=== PATIENT | female | born 1935 | race Caucasian/White ===

== ENCOUNTER 2017-09-23 10:55 | Emergency (ER) | payer MEDICARE, BC ==
[~2017-09-23] VITALS: Ht 565.3 cm; Wt 67.7 kg
[2017-09-23] MEDS ORDERED: LEVO25TA2 PO (11:09)
[2017-09-23] MEDS ORDERED: ASPI81TA52 PO (11:09)
[2017-09-23] MEDS ORDERED: TETanus/Pertussis (Acell)/Diphther VAC/PF (Tdap-Adult) 0.5ml syringe IM ONE (12:20)
[2017-09-23] MEDS ORDERED: EPI IJ ONE (13:25)
[2017-09-23] MEDS ORDERED: BUPIVACAINE 0.5% IJ ONE (13:25)
[2017-09-23] MEDS ORDERED: LIDOcaine 1.5% w/epinephrine 1:200,000 5ml ampul SQ ONE (13:40)
[2017-09-23] MEDS ORDERED: bacitracin 15gm ointment TP ONE (14:25)
[2017-09-23 14:37] VITALS: BP 150/76
== END 2017-09-23 14:40 | disposition home or self-care (01) ==
LOC: ER 10:55
DX: S06.0X0A Concussion without loss of consciousness, initial encounter (principal); S01.01XA Laceration without foreign body of scalp, initial encounter; S80.12XA Contusion of left lower leg, initial encounter; Z79.82 Long term (current) use of aspirin; Z79.899 Other long term (current) drug therapy; W22.8XXA Striking against or struck by other objects, initial encounter; Y93.89 Activity, other specified; Y92.89 Other specified places as the place of occurrence of the external cause; Y99.8 Other external cause status
CPT/HCPCS: 12001; 70450; 90471; 90715; 99284; A6449; J3490

== ENCOUNTER 2025-02-03 10:05 | Emergency (ER) | payer MEDICARE, BC ==
[~2025-02-03] VITALS: Ht 162.6 cm; Wt 76.0 kg
[2025-02-03 10:05] VITALS: TEMP 98
[~2025-02-03 10:05] MED LIST: ASPI81TA52 PO; LEVO25TA2 PO
--- NOTE | 2025-02-03 10:13 | ELECTROCARDIOGRAPH REPORT ---
[facility] Test Date: 2025-02-03 Test Time: 10:10:51 Pat Name: LISE GOODE Department: EMERGENCY ROOM Room: Gender: F [employer]: ALVAREZ : 1935 Requested By: JEREMIAH HERNÁNDEZ Order Number: [id number] Reading MD: Dr. HERMES Vaughan Measurements Intervals [place] Rate: 107 P: 0 WV: 0 QRS: 81 QRSD: 85 T: 43 QT: 330 QTc: 441 Interpretive Statements Atrial fibrillation Borderline right axis deviation Low voltage, precordial leads Probable anteroseptal infarct, old Minimal ST depression, diffuse leads Electronically Signed On 02-05-2025 11:46:[address] HERMES Vaughan Please click the below link to view image of tracing.
--- NOTE | 2025-02-03 10:34 | RADIOLOGY REPORT ---
EXAM: DI CHEST,SINGLE VIEW Indication: CP Technique: Single frontal view of the chest was obtained Comparison: None FINDINGS: Lines and Tubes: None Lungs: No focal consolidation. Pleura: No effusion. No pneumothorax. Cardiomediastinal contours: Unremarkable. Atherosclerotic vascular calcifications of the thoracic aorta are noted. Bones: No acute osseous abnormality. IMPRESSION: No acute cardiopulmonary disease.
[2025-02-03 10:43] LABS: MEAN PLATELET VOLUME 9.0 FL (7.4-10.4); RED CELL DISTRIBUTION WIDTH 12.9 % (11.5-14.5)
[2025-02-03 11:01] LABS: CREATININE 1.22 MG/DL (0.40-0.90); PRO BRAIN NATRIURETIC PEPTIDE 1549 PG/ML (0-450); TOTAL CARBON DIOXIDE 30.4 MMOL/L (24-32); eCRCL 28 ML/MIN; eGFR 42 ML/MIN
[2025-02-03] MEDS ORDERED: albuterol 2.5 MG/3 ML nebule NEB ONE (11:15)
--- NOTE | 2025-02-03 11:18 | RADIOLOGY REPORT ---
EXAM: CT CT HEAD INDICATION: fall, head strike, blood thinner TECHNIQUE: CT of the head without intravenous contrast. Radiation Dose : 1. Head: CT Dose: CTDI volume is 51.7 mGy. Dose-length product is 898.8 mGy*cm The dose indicators for CT are the volume Computed Tomography (CT) Dose Index (CTDIvol) and the Dose Length Product (DLP), and are measured in units of mGy and mGy-cm, respectively. These indicators are not patient dose, but values generated from the CT scanner acquisition factors. The report includes radiation exposure data for exposures received during this examination. COMPARISON: None FINDINGS: There is no evidence of acute intracranial hemorrhage, extra-axial collection, mass effect, midline shift, herniation or hydrocephalus. The ventricles, sulci and cisterns are age appropriate. The bowling-white differentiation is intact. Patchy periventricular and subcortical white matter hypoattenuation is nonspecific but may be related to small vessel ischemic disease. The visualized paranasal sinuses and mastoid air cells are clear. Moderate to severe left posterior frontal soft-tissue hematoma. IMPRESSION: No acute intracranial abnormality. Radiation optimization: All CT scans at this facility use at least one of these dose optimization techniques: automated exposure control mA and/or kV adjustment per patient size (includes targeted exams where dose is matched to clinical indication) or iterative reconstruction.
--- NOTE | 2025-02-03 11:19 | RADIOLOGY REPORT ---
EXAM: CT CT CERVICAL SPINE HISTORY: fall head strike COMPARISON: CT CT HEAD on DOS: 02/03/25 CTDIvol 20 mGy, DLP 441 mGy*cm. TECHNIQUE: Multiple axial CT images of the spine were obtained using bone algorithm. Axial and coronal reformatting was done. Bone and soft tissue windows were reviewed. FINDINGS: No evidence of definite acute fracture, spinal dislocation, or significant appearing acute subluxation is seen. Multilevel degenerative changes of the spine. IMPRESSION: No definite CT evidence of acute fracture or dislocation of the bony cervical spine.
--- NOTE | 2025-02-03 11:36 | Physician Documentation ---
History of Present Illness ~ Chief Complaint: Irregular Heartbeat Stated Complaint: FALL Time Seen by MD: 10:26 Primary Medical Doctor: CALVIN Mode of Arrival: EMS, Stretcher HPI PT BIBA after having mechanical fall with positive headstrike and blood thinners. NO LOC or back or neck pain. No laceration to head but pt has hematoma. Pt in a-fib with RVR with medics. Pt denies a-fib but pt takes eliquis and metoprolol. Reports pain at the site of her hematoma but no headache. Medication Reconciliation Allergies: Coded Allergies: No Known Allergies (Unverified , 09/23/17) Scheduled Aspirin (Aspirin EC), 1 TABLET PO DAILY, (Reported) levothyroxine sodium* (Synthroid*), 1 TAB PO DAILY, (Reported) Past Medical History Past Medical History: No Pertinent History Past Surgical History: noncontributory Alcohol Use: None Drug Use: none Lives with: Spouse Lives In: Home Occupation: retired Review of Systems All Other Systems at this time: Reviewed and Negative Physical Exam Vital Signs: RN Vital Signs have been reviewed: Yes, Temperature: 98.0, Source: Oral, Heart Rate: 100, Respiratory Rate: 16, BP: 206/118, Pulse Oximetry: 98, Weight: 76.000 Oxygen Flow Rate: 0 Physical Exam Gen: no distress HEENT: PERRL, EOMI no neck or facial swelling, uvula midline; hematoma to R parietooccipital scalp with some bleeding but no laceration Pulm: normal WOB, no distress CTAB Cardiac: irregularly irregular Abd: soft, NT, ND Skin: w/d/i MSK: no deformity Neuro: nonfocal Psych: normal affect Progress Results/Orders Results/Orders Orders - JEREMIAH HERNÁNDEZ MD Chest,Single View (02/03/25 10:10) Monitor (02/03/25 10:10) Saline Lock (02/03/25 10:10) Oxygen (02/03/25 10:10) Hs Troponin I W Calculations (02/03/25 12:10) Hs Troponin I W Calculations (02/03/25 13:10) Ct Head (02/03/25 10:15) Ct Cervical Spine (02/03/25 10:55) Completed Orders - JEREMIAH HERNÁNDEZ MD Chest,Single View (02/03/25 10:10) Cbc/Diff (02/03/25 10:10) BMP (02/03/25 10:10) PBNP (02/03/25 10:10) Electrocardiogram (02/03/25 10:10) Hs Troponin I W Calculations (02/03/25 10:10) Ct Head (02/03/25 10:15) Ct Cervical Spine (02/03/25 10:55) Vital Signs 02/03/25 02/03/25 02/03/25 10:05 10:11 10:17 Temp 98.0 Pulse 130 100 Resp 16 16 16 B/P (MAP) 189/125 206/118 (147) Pulse Ox 98 98 O2 Flow Rate 0 0 Laboratory Tests Test 02/03/25 10:18 White Blood Count 8.3 Red Blood Count 4.78 Hemoglobin 15.5 Hematocrit 45.3 H Mean Corpuscular Volume 94.7 Mean Corpuscular Hemoglobin 32.4 H Mean Corpuscular Hemoglobin Concent 34.2 Red Cell Distribution Width 12.9 Platelet Count 278 Mean Platelet Volume 9.0 Neutrophils (%) (Auto) 72.2 Lymphocytes (%) (Auto) 16.5 L Monocytes (%) (Auto) 8.4 Eosinophils (%) (Auto) 2.2 Basophils (%) (Auto) 0.7 Neutrophils # (Auto) 6.0 Lymphocytes # (Auto) 1.4 Monocytes # (Auto) 0.7 Eosinophils # (Auto) 0.2 Basophils # (Auto) 0.1 CBC Comment Sodium Level 140 Potassium Level 3.5 Chloride Level 103 Carbon Dioxide Level 30.4 Anion Gap 7 L Blood Urea Nitrogen 33 H Creatinine 1.22 H Estimated GFR/1.73 m2 42 BUN/Creatinine Ratio 27.0 H Glucose Level 130 H Calcium Level 8.7 Troponin I High Sensitivity 9 Pro-B-Type Natriuretic Peptide 1549 H Albumin 3.7 Chemistry Comments Medical Decision Making Additional information obtaine: N/A Findings 89 year old female with mechanical fall and head strike but no LOC, on blood thinners. Exam and workup were benign including CT head and c-spine which demonstrated no mass, facture, shift, bleed. Will road test and discharge with return precautions. Differential Dx:Considerations: Include: other Differential Dx:Considerations: Include other Additional Information Ddx = intracranial hemorrhage, skull fracture, c-spine fracture or dislocation, laceration, syncope, UTI, dysrhythmia, sepsis, mechanical fall, hip fracture Departure Disposition: 01 HOME / SELF CARE / HOMELESS Impression: Primary Impression: Scalp hematoma Condition: Stable Discharge Instructions: Head Injury, Adult Referrals: NO PRIMARY CARE PROVIDER (PCP) Education Educated: Patient Educated regarding: diagnosis, treatment, prognosis, need for follow up Signature Scribe Signature: . Attestation: . JEREMIAH HERNÁNDEZ MD Feb 03, 2025 11:36
[2025-02-03 12:08] VITALS: BP 197/116; PULSE 91; RESP 16; O2SAT 97
== END 2025-02-03 12:05 | disposition home or self-care (01) ==
LOC: ER 10:05
DX: S00.03XA Contusion of scalp, initial encounter (principal); I48.91 Unspecified atrial fibrillation; Z79.82 Long term (current) use of aspirin; Z79.899 Other long term (current) drug therapy; W18.30XA Fall on same level, unspecified, initial encounter; Y93.89 Activity, other specified; Y92.89 Other specified places as the place of occurrence of the external cause; Y99.8 Other external cause status
CPT/HCPCS: 36415; 70450; 71045; 72125; 80048; 83880; 84484; 85025; 93005; 99285